=== PATIENT | male | born 1930 | race Caucasian/White ===

== ENCOUNTER 2016-06-14 23:43 | Inpatient (IN) | payer OTHER ==
[2016-06-14] MEDS ORDERED: NS 1,000 ML IV ONE (23:51)
--- NOTE | 2016-06-14 23:55 | EDPHY ---
H & P HPI/ROS: HPI CHIEF COMPLAINT: Generalized weakness, cough with sputum production HISTORY OF PRESENT ILLNESS: The patient very pleasant 85-year-old male significant past medical history for arthritis and hyperlipidemia, otherwise healthy no significant cardiac disease, presents to the emergency room with generalized weakness, cough with productive sputum clear to yellowish. She had no fever but also endorses chills and generalized weakness he tells me he has been in bed all day. Had a cough. Went to get up out of bed this evening and had 2 episodes of watery diarrhea and felt too weak to walk slightly upstairs to his bathroom and fell. His caught him he did not have head strike he did not completely go out or collapse did not have a syncopal episode. No palpitation or chest pain. No head strike. States he just feels globally weak all over his body. Past Medical History: Arthritis, hyperlipidemia Past Surgical History: No significant surgical history Social History: Denies daily use of drugs alcohol tobacco products, retired [employer] professor Family History: Noncontributory ROS REVIEW OF SYSTEMS: A comprehensive 10 point review of systems is otherwise negative aside from elements mentioned in the history of present illness. Exam Constitutional appears well nontoxic, triage nursing summary reviewed, vital signs reviewed, awake/alert. Eyes normal conjunctivae and sclera, EOMI, PERRLA. HENT normal inspection, atraumatic, moist mucus membranes, no epistaxis, neck supple/ no meningismus, no raccoon eyes. Respiratory clear to auscultation bilaterally, normal breath sounds, no respiratory distress, no wheezing. Cardiovascular rate normal, regular rhythm, no murmur, no edema, distal pulses normal. Gastrointestinal soft, non-tender, no rebound, no guarding, normal bowel sounds, no distension, no pulsatile mass. Genitourinary no CVA tenderness. Musculoskeletal no midline vertebral tenderness, full range of motion, no calf swelling, no tenderness of extremities, no meningismus, good pulses, neurovascularly intact. Skin pink, warm, & dry, no rash, skin atraumatic. Neurologic awake, alert and oriented x 3, AAOx3, moves all 4 extremities equally, motor intact, sensory intact, CN II-XII intact, normal cerebellar, normal vision, normal speech. Psychiatric normal mood/affect. Heme/Lymph/Immune no lymphadenopathy. Differential Diagnosis: Includes but is not limited to in a particular order, pneumonia, viral pneumonia, bacterial pneumonia, acute coronary syndrome, dehydration, electrolyte disturbance, sepsis, bacteremia Medical Decision Making: plan for this patient be placed on full buckle coverer and IV will be established, we will obtain blood work, including blood cultures lactic acid gently hydrate with normal saline 1 L, check chest x-ray and re-evaluate. Re-evaluation: EKG interpretation by me on record in [employer] system. Impression time of EKG 1:01 a.m., this is sinus rhythm rate of 88, Q-wave noted to 3 AVF. Otherwise unremarkable EKG. CT scan of the angiogram chest with IV contrast The results of the study are no pulmonary embolism however this does show interstitial lung disease, pulmonary fibrosis, no focal pneumonia visualized The study was read by Dr. Sibley I viewed the images myself on the PACS system. 0236: I did go re-evaluate the patient is patient initially had elevated lactic acid 3.6 down to 2.0 after 2 L of fluid. Did get blood cultures, he did receive IV Rocephin and IV azithromycin for lung process. CT scan shows no acute pneumonia. Due to patient's age of [age] years old generalized weakness, chills and rigors at home, elevated lactic acid, underlying lung disease I will bring her to the hospital for observation. Dr. Weeks accepts the admission. Source: Patient, Family, EMS - Personal History Tetanus Vaccine Date: < 10 yrs - Medical/Surgical History Hx Asthma: No Hx Chronic Respiratory Disease: No Hx Diabetes: No Hx Cardiac Disease: No Hx Renal Disease: No Hx Cirrhosis: No Hx Alcoholism: No Hx HIV/AIDS: No Hx Splenectomy or Spleen Trauma: No Other PMH: "lung problems" a few years ago. arthritis - Social History Smoking Status: Former smoker Constitutional: Initial Vital Signs Temperature (C) 37.7 C 06/15/16 00:01 Heart Rate 94 06/15/16 00:01 Respiratory Rate 16 06/15/16 00:01 Blood Pressure 137/86 H 06/15/16 00:01 O2 Sat (%) 93 06/15/16 00:01 O2 Delivery Mode Room Air Allergies/Adverse Reactions: No Known Allergies Allergy (Verified 08/10/13 14:36) Home Medications: Medication Instructions Recorded Atorvastatin Calcium [Lipitor 10 08/10/13 mg (RX)] Diclofenac Sodium 06/15/16 Medical Decision Making - Data Points Laboratory Results: Laboratory Results 06/14/16 23:48 06/14/16 23:48 06/15/16 06/15/16 06/14/16 02:00 00:15 23:48 WBC RBC Hgb Hct MCV MCH MCHC RDW Plt Count MPV Neut % (Auto) Lymph % (Auto) [place] % (Auto) Eos % (Auto) Baso % (Auto) Nucleat RBC Rel Count Absolute Neuts (auto) Absolute Lymphs (auto) Absolute Monos (auto) Absolute Eos (auto) Absolute Basos (auto) Absolute Nucleated RBC Immature Gran % Immature Gran # PT INR APTT D-Dimer VBG Lactic Acid 2.0 mmol/L D mmol/L 3.6 mmol/L H mmol/L (0.7-2.1) (0.7-2.1) Sodium Potassium Chloride Carbon Dioxide Anion Gap BUN Creatinine Estimated GFR Glucose Calcium Magnesium Total Bilirubin Conjugated Bilirubin Unconjugated Bilirubin AST ALT Alkaline Phosphatase Creatine Kinase CK-MB (CK-2) Fraction Troponin I NT-Pro-B Natriuret Pep Total Protein Albumin Lipase Urine Color YELLOW Urine Appearance CLEAR Urine pH 5.0 (5.0-7.5) Ur Specific [place] 1.028 (1.002-1.030) Urine Protein NEGATIVE (NEGATIVE) Urine Ketones TRACE H (NEGATIVE) Urine Blood NEGATIVE (NEGATIVE) Urine Nitrate NEGATIVE (NEGATIVE) Urine Bilirubin NEGATIVE (NEGATIVE) Urine Urobilinogen NEGATIVE EU EU (0.2-1.0) Ur Leukocyte Esterase NEGATIVE (NEGATIVE) Ur Culture Indicated? NOT INDICATED (NI) Urine Glucose NEGATIVE (NEGATIVE) 06/14/16 06/14/16 06/14/16 23:48 23:48 23:48 WBC 8.02 10^3/uL 10^3/uL (3.80-9.50) RBC 4.73 10^6/uL 10^6/uL (4.40-6.38) Hgb 16.1 g/dL g/dL (13.7-17.5) Hct 46.9 % % (40.0-51.0) MCV 99.2 fL fL (81.5-99.8) MCH 34.0 pg pg (27.9-34.1) MCHC 34.3 g/dL g/dL (32.4-36.7) RDW 13.3 % % (11.5-15.2) Plt Count 169 10^3/uL 10^3/uL (150-400) MPV 10.1 fL fL (8.7-11.7) Neut % (Auto) 76.0 % H % (39.3-74.2) Lymph % (Auto) 11.6 % L % (15.0-45.0) [place] % (Auto) 11.3 % % (4.5-13.0) Eos % (Auto) 0.1 % L % (0.6-7.6) Baso % (Auto) 0.6 % % (0.3-1.7) Nucleat RBC Rel Count 0.0 % % (0.0-0.2) Absolute Neuts (auto) 6.09 10^3/uL 10^3/uL (1.70-6.50) Absolute Lymphs (auto) 0.93 10^3/uL L 10^3/uL (1.00-3.00) Absolute Monos (auto) 0.91 10^3/uL H 10^3/uL (0.30-0.80) Absolute Eos (auto) 0.01 10^3/uL L 10^3/uL (0.03-0.40) Absolute Basos (auto) 0.05 10^3/uL 10^3/uL (0.02-0.10) Absolute Nucleated RBC 0.00 10^3/uL 10^3/uL (0-0.01) Immature Gran % 0.4 % % (0.0-1.1) Immature Gran # 0.03 10^3/uL 10^3/uL (0.00-0.10) PT 13.2 SEC SEC (12.0-15.0) INR 1.01 (0.83-1.16) APTT 29.7 SEC SEC (23.0-38.0) D-Dimer 0.85 ug/mLFEU H ug/mLFEU (0.00-0.50) VBG Lactic Acid Sodium 140 mEq/L mEq/L (134-144) Potassium 4.6 mEq/L mEq/L (3.5-5.2) Chloride 103 mEq/L mEq/L (97-110) Carbon Dioxide 22 mEq/l mEq/l (22-31) Anion Gap 15 mEq/L mEq/L (8-16) BUN 21 mg/dL mg/dL (7-23) Creatinine 1.4 mg/dL H mg/dL (0.7-1.3) Estimated GFR 48 Glucose 129 mg/dL H mg/dL (70-100) Calcium 9.4 mg/dL mg/dL (8.5-10.4) Magnesium 1.9 mg/dL mg/dL (1.6-2.3) Total Bilirubin 1.1 mg/dL mg/dL (0.1-1.4) Conjugated Bilirubin 0.4 mg/dL mg/dL (0.0-0.5) Unconjugated Bilirubin 0.7 mg/dL mg/dL (0.0-1.1) AST 47 IU/L IU/L (17-59) ALT 37 IU/L IU/L (21-72) Alkaline Phosphatase 79 IU/L IU/L (38-126) Creatine Kinase 166 IU/L IU/L (0-224) CK-MB (CK-2) Fraction 0.64 ng/mL ng/mL (0-3.19) Troponin I 0.026 ng/mL ng/mL (0-0.034) NT-Pro-B Natriuret Pep 352 pg/mL pg/mL (0-450) Total Protein 7.7 g/dL g/dL (6.3-8.2) Albumin 4.4 g/dL g/dL (3.5-5.0) Lipase 141.0 IU/L IU/L (23-300) Urine Color Urine Appearance Urine pH Ur Specific [place] Urine Protein Urine Ketones Urine Blood Urine Nitrate Urine Bilirubin Urine Urobilinogen Ur Leukocyte Esterase Ur Culture Indicated? Urine Glucose Medications Given: Discontinued Medications Sodium Chloride (Ns) 1,000 mls @ 0 mls/hr IV ONCE ONE PRN Reason: Wide Open Stop: 06/14/16 23:52 Last Admin: 06/15/16 00:26 Dose: 1,000 mls Sodium Chloride (Ns) 1,000 mls @ 0 mls/hr IV ONCE ONE PRN Reason: Wide Open Stop: 06/15/16 00:35 Last Admin: 06/15/16 01:04 Dose: 1,000 mls Azithromycin 500 mg/ Dextrose 255 mls @ 255 mls/hr IV EDNOW ONE PRN Reason: Protocol Stop: 06/15/16 01:34 Last Admin: 06/15/16 01:39 Dose: 255 mls Ceftriaxone Sodium/Dextrose (Rocephin 1 Gm (Premix)) 50 mls @ 100 mls/hr IV EDNOW ONE PRN Reason: Protocol Stop: 06/15/16 01:04 Last Admin: 06/15/16 01:05 Dose: 50 mls Departure - Departure Disposition: [facility] Inpatient Acute Clinical Impression: Generalized weakness Condition: Fair Referrals: Gema Etienne MD [Primary Care Provider] - As per Instructions
[2016-06-15 00:05] LABS: % IMMATURE GRANULYOCYTES 0.4 % (0.0-1.1); ABSOLUTE IMMATURE GRANULOCYTES 0.03 10^3/uL (0.00-0.10); ADD DIFF? NO; ADD MORPH? NO; ADD SCAN? NO; ATYPICAL LYMPHOCYTE FLAG 0 (0-99); FRAGMENT RBC FLAG 0 (0-99); HEMATOCRIT 46.9 % (40.0-51.0); HEMOGLOBIN 16.1 g/dL (13.7-17.5); LEFT SHIFT FLG 0 (0-99); LIPEMIA HEMOLYSIS FLAG 90 (0-99); MEAN CELL HEMOGLOBIN CONCENTR. 34.3 g/dL (32.4-36.7); MEAN CELL VOLUME 99.2 fL (81.5-99.8); MEAN PLATELET VOLUME 10.1 fL (8.7-11.7); PLATELET CLUMPS FLAG 0 (0-99); PLATELET COUNT 169 10^3/uL (150-400); RED BLOOD CELL COUNT 4.73 10^6/uL (4.40-6.38); RED CELL DISTRIBUTION WIDTH 13.3 % (11.5-15.2)
[2016-06-15 00:10] LABS: INR 1.01 (0.83-1.16); PROTIME(PATIENT) 13.2 SEC (12.0-15.0)
[2016-06-15 00:11] LABS: APTT 29.7 SEC (23.0-38.0)
[2016-06-15 00:15] LABS: ALANINE AMINOTRANSFERASE 37 IU/L (21-72); ALBUMIN 4.4 g/dL (3.5-5.0); ALKALINE PHOSPHATASE 79 IU/L (38-126); ANION GAP 15 mEq/L (8-16); ASPARTATE AMINOTRANSFERASE 47 IU/L (17-59); BILIRUBIN,TOTAL 1.1 mg/dL (0.1-1.4); BILIRUBIN-CONJUGATED 0.4 mg/dL (0.0-0.5); BILIRUBIN-UNCONJUGATED 0.7 mg/dL (0.0-1.1); CALCIUM 9.4 mg/dL (8.5-10.4); CARBON DIOXIDE 22 mEq/l (22-31); CHLORIDE 103 mEq/L (97-110); CREATININE 1.4 mg/dL (0.7-1.3); GLOMERULAR FILTRATION RATE 48; GLUCOSE 129 mg/dL (70-100); MAGNESIUM 1.9 mg/dL (1.6-2.3); POTASSIUM 4.6 mEq/L (3.5-5.2); SODIUM 140 mEq/L (134-144); TOTAL PROTEIN 7.7 g/dL (6.3-8.2)
[2016-06-15 00:24] LABS: CREATINE KINASE-MB FRACTION 0.64 ng/mL (0-3.19); TROPONIN I 0.026 ng/mL (0-0.034)
[2016-06-15] MEDS ORDERED: NS 1,000 ML IV ONE (00:34)
[2016-06-15] MEDS ORDERED: AZITHROMYCIN IV 500 MG in D5W 250 ML IV ONE (00:35)
[2016-06-15] MEDS ORDERED: IOPAMIDOL (ISOVUE 370) 100 ML BTL IV ONE (00:53)
--- NOTE | 2016-06-15 01:03 | CPEKG ---
Heart Rate: 88 RR Interval: 682 P-R Interval: 160 QRSD Interval: 78 QT Interval: 336 QTC Interval: 407 P [place]: 22 QRS [place]: -28 T Wave [place]: -24 EKG Severity - ABNORMAL ECG - EKG Impression: SINUS RHYTHM EKG Impression: PROBABLE LEFT ATRIAL ABNORMALITY EKG Impression: PROBABLE INFERIOR INFARCT, AGE INDETERMINATE Electronically Signed By: Jose Long 15-Jun-2016 06:46:10
[2016-06-15 02:29] LABS: COLOR YELLOW; LEUKOCYTE ESTERASE,URINE NEGATIVE (NEGATIVE); NITRITE,URINE NEGATIVE (NEGATIVE)
[2016-06-15] MEDS ORDERED: ONDANSETRON 4 MG/2 ML VIAL IVP PRN (04:06)
[2016-06-15] MEDS ORDERED: ONDANSETRON DISINTEGRATING 4 MG TAB PO PRN (04:06)
[2016-06-15] MEDS ORDERED: OXYCODONE/APAP 5/325 TAB PO PRN (04:28)
[2016-06-15] MEDS: NS 1,000 ML IV SCH ×3 (04:53→22:57)
[2016-06-15] MEDS: ACETAMINOPHEN 325 MG TAB PO PRN ×4 (04:54→21:14)
[2016-06-15] MEDS ORDERED: LORazepam 2 MG/ML INJ IVP ONE (05:19)
[2016-06-15 05:23] LABS: % IMMATURE GRANULYOCYTES 0.4 % (0.0-1.1); ABSOLUTE IMMATURE GRANULOCYTES 0.04 10^3/uL (0.00-0.10); ADD DIFF? NO; ADD MORPH? NO; ADD SCAN? NO; ATYPICAL LYMPHOCYTE FLAG 0 (0-99); FRAGMENT RBC FLAG 0 (0-99); HEMATOCRIT 48.3 % (40.0-51.0); HEMOGLOBIN 16.5 g/dL (13.7-17.5); LEFT SHIFT FLG 0 (0-99); LIPEMIA HEMOLYSIS FLAG 90 (0-99); MEAN CELL HEMOGLOBIN 35.2 pg (27.9-34.1); MEAN CELL HEMOGLOBIN CONCENTR. 34.2 g/dL (32.4-36.7); MEAN PLATELET VOLUME 10.5 fL (8.7-11.7); PLATELET CLUMPS FLAG 0 (0-99); PLATELET COUNT 151 10^3/uL (150-400); RED BLOOD CELL COUNT 4.69 10^6/uL (4.40-6.38); RED CELL DISTRIBUTION WIDTH 13.7 % (11.5-15.2)
[2016-06-15 05:40] LABS: ANION GAP 14 mEq/L (8-16); CALCIUM 8.6 mg/dL (8.5-10.4); CARBON DIOXIDE 19 mEq/l (22-31); CHLORIDE 105 mEq/L (97-110); CREATININE 1.2 mg/dL (0.7-1.3); GLOMERULAR FILTRATION RATE 58; GLUCOSE 96 mg/dL (70-100); POTASSIUM 4.5 mEq/L (3.5-5.2); SODIUM 138 mEq/L (134-144)
[2016-06-15 05:46] LABS: TROPONIN I 0.047 ng/mL (0-0.034)
--- NOTE | 2016-06-15 07:20 | GHP ---
[f rep st] HISTORY AND PHYSICAL DATE OF ADMISSION: 06/15/2016 CHIEF COMPLAINT: Weakness, shaking chills and cough. HISTORY: This is an 85-year-old man with a past medical history of osteoarthritis and interstitial lung disease, noted on imaging and biopsy in 2010, with nonspecific findings, presenting with about 1 day's worth of generalized malaise and fatigue, loss of appetite, sore throat, shaking chills, and cough with sputum production. At the time my evaluation, patient is extremely tremulous throughout his entire body, and having difficulty relaying his history due to mild distress. He is able to te ll me that these symptoms started the day prior to presentation and have been worsening over the cou rse of the day. He notes he really has been unable to eat or drink anything over the last 24 hours other than soups. Ultimately, the weakness got so bad that when he tried to get out of bed this andrew medina he ended up falling, and then was unable to get up on his own. He was incontinent of stool at the same time. He denies any pain really. He notes that he did not hit his head or injure himself on his fall, as his was there and helped him get to the floor. He notes in terms of his ILD, t his was diagnosed years ago by Dr. 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 He denies any sick contacts recently. He has never had similar symptoms in the [facility]. PAST MEDICAL HISTORY: 1. Osteoarthritis. 2. Interstitial lung disease as per HPI. 3. Chronic macrocytosis. PAST SURGICAL HISTORY: Bilateral total hip arthroplasties. FAMILY HISTORY: Parents are both . SOCIAL HISTORY: The patient is a retired [employer] professor. He typically drinks at least 1 glass of wine per day, has not had a drink in 2 days however, secondary to not feeling well. He is a never smoker. Denies drug use. He is . REVIEW OF SYSTEMS: A 10-point review of systems obtained, negative except as per HPI. CODE STATUS: The patient states he is a DNR. He does have a living will and power of route supervisor on f ile at our hospital. MEDICATIONS: 1. Diclofenac. 2. Atorvastatin. ALLERGIES: No known drug allergies. PHYSICAL EXAM: VITAL SIGNS: BP 119/76, heart rate 83, respiratory rate 20, O2 saturation 92% on ro om air. Temperature is 39.4. GENERAL APPEARANCE: This is a thin male. He is in mild di stress. He is diffusely tremulous. EYES: Anicteric. HEENT: Dry mucous membranes, there is mild posterior pharyngeal erythema without exudate. CARDIOVASCULAR: RRR, no MRG. PULMONARY: CTA bilat erally to anterior exam. ABDOMEN: Soft, nontender. Positive bowel sounds. EXTREMITIES: No clubb ing, cyanosis, or edema. SKIN: Warm, dry, well perfused. NEURO/PSYCH: Oriented and appropriate, pleasant. LABORATORY DATA: Significant for white blood cell count of 10, hematocrit 48.3, platelets of 151, M CV is 103. He had a D-dimer of 0.85. Initial lactic acid 3.6, improved to 2.0. Chemistry remarkabl e for an initial creatinine of 1.4. Troponin initially 0.026 and on repeat 0.047. Urinalysis showi ng trace ketones. Influenza swab positive for flu A. EKG personally reviewed and interpreted shows sinus rhythm. There are inferior Q-waves. Chest and thorax CT angiogram, personally reviewed and interpreted, shows no PE. There was evidence of diffuse interstitial lung disease and bronchiectasis. A formal radiology read is pending. ASSESSMENT AND PLAN: This is an 85-year-old man with past medical history of interstitial lung dise ase and osteoarthritis, presenting with sepsis and influenza. 1. Sepsis: Patient noted to be febrile to 39.4 with altered mentation, acute kidney injury, an ani vated troponin in the setting of acute infectious process, notably influenza A infection. He is cur rently hemodynamically stable. His lactic acid has come down from 3.6 to 2.0. He was given ceftria xone and azithromycin empirically in the emergency department, and now has been started on Tamiflu i n addition. 2. Acute influenza A in the setting of above: Started on Tamiflu. For the time being, will also t reat with levofloxacin, given difficulty to exclude concurrent bacterial infection in this patient w ith underlying interstitial lung disease as per next. 3. Interstitial lung disease: This has been present since at least 2008, but apparently has been r ather quiescent. 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 In the se tting of influenza and sepsis, again it is difficult to exclude concurrent bacterial infection. He has received ceftriaxone and azithromycin, with blood cultures pending. Will treat with levofloxaci n as monotherapy, as long as he continues to improve clinically, but would have a low threshold to b roaden. 4. Elevated troponin without chest pain or acute ischemic changes on EKG and in the setting of seps is, and likely related to end-organ dysfunction in the setting of acute infectious process. Will ob tain an echocardiogram and continue to trend troponins to peak. Monitoring on telemetry. 5. Acute kidney injury in the setting of sepsis as per above. Creatinine has improved with IV flui ds and initiation of antibiotic therapy. We will continue to monitor. 6. Macrocytosis: This is chronic. Again, in the setting of daily alcohol use and likely related t o the same. We will trend. 7. Tremulousness: Suspect this is rigors, however given history of daily alcohol use and not hayde borges had a drink for 2 days, there is some concern for withdrawal. Gave a small dose of Ativan, with s ome improvement. Blood cultures are pending. Have not initiated CIWA protocol, but this will need to be considered if tremulousness and encephalopathy do not improve with treatment of infection. 8. Acute encephalopathy: The patient noted to be mildly confused and very slow to respond to quest ions, which is a change from his baseline per patient and family's report. Again, this is in the se tting of acute infection and sepsis, and likely related to the same. We will monitor closely. 9. Disposition: Inpatient status. Suspect he will need greater than 48 hour stay for evaluation a nd management of above. 10. PCP Dr. Etienne, Paleobotanist Dr. Regalado. 11. Code status is DNR. 12. Patient is new to my care. Old records reviewed, summarized as per HPI and past medical histor y. Care plan reviewed with ER physician, including plans for treatment of suspected pneumonia. /[id number]/MODL
[2016-06-15] MEDS ORDERED: OSELTAMIVIR PHOSPHATE 75 MG CAP PO SCH (08:00)
--- NOTE | 2016-06-15 08:46 | HOSPPROG ---
Hospitalist Progress Note Assessment/Plan: Patient is an 85-year-old man presented to the emergency room with weakness, shaking, and cough. Today is my 1st encounter with the patient. Chart reviewed with Dr. Weeks. *Influenza A tamiflu * sepsis febrile with a temperature 39.4 degrees this a.m. on Levaquin, blood cultures pending *elevated trops/likely demand ischemia trops have trended up echo shows ef of 70-75%, diastolic dysfunction, no wall abnormalities * interstitial lung disease chest x-ray notes this in addition CT scan shows no PE, evidence of diffuse interstitial lung disease and bronchiectasis spoke with Dr Santos and he will see later today * acute kidney injury will follow /likely due in the setting of dehydration and being ill * macrocytosis * tremulousness unclear if related to be in septic or possibly related to his alcohol use will continue close monitoring *acute encephalopathy resolved *Plan: Dr Santos to see, follow labs, continue current treatment. Subjective: Ruy said he is run down. Objective: Vital Signs Temp Pulse Resp BP Pulse Ox 36.7 C 94 20 108/61 95 06/15/16 07:09 06/15/16 07:09 06/15/16 07:09 06/15/16 07:09 06/15/16 07:09 Laboratory Results 06/15/16 04:39 06/15/16 04:39 06/14/16 06/15/16 06/16/16 05:59 05:59 05:59 Intake Total 2000 Output Total 250 Balance 1750 PT 13.2 SEC (12.0-15.0) 06/14/16 23:48 INR 1.01 (0.83-1.16) 06/14/16 23:48 - Physical Exam Constitutional: chronically ill appearing, other (thin) Eyes: PERRL Ears, Nose, Mouth, Throat: hearing normal Cardiovascular: regular rate and rhythym Respiratory: reduced air movement, other (rubbing type lung sounds), No no respiratory distress (increase wob with talking) Gastrointestinal: normoactive bowel sounds Skin: warm Neurologic: AAOx3 Psychiatric: interacting appropriately, not anxious ICD10 Worksheet Patient Problems: Problems Problem Status Onset Generalized weakness Acute Primary osteoarthritis of one hip Acute
[2016-06-15] MEDS ORDERED: ENOXAPARIN 30 MG/0.3 ML SYR SC SCH (09:00)
[2016-06-15] MEDS: OSELTAMIVIR 6 MG/ML UDSYR PO SCH ×2 (09:30→17:55)
[2016-06-15] MEDS: CEPACOL LOZENGE PO PRN (09:51)
--- NOTE | 2016-06-15 10:40 | ECHO ---
[id number] + + [phone] : : [place] [id number] : : [phone] + Adult Echocardiographic Report + ----+ :Name: YU CARNES Amie Date: 06/15/2016 09:03 AM : : Hospital Admission Number: [id number] Location: 384: :: 1930 Gender: Male Height: 70 in : :Age: 85 yrs Race: WH Weight: 145 lb : :Reason For Study: Influenza,elevated troponin : : BSA: 1.8 meters2 : + ----+ MMode/2D Measurements \T\ Calculations IVSd: 0.79 cm LVIDd: 3.9 cm FS: 51.5 % Ao root diam: 4.5 cm LVPWd: 0.99 cm LVIDs: 1.9 cm EDV(Teich): 64.2 ml LA dimension: 3.2 cm ESV(Teich): 10.7 ml EF(Teich): 83.3 % Normal Measurement Values: + + :LVIDd (3.5-5.7cm) IVSd (0.6-1.1cm) LVPWd (0.6-1.1cm) Aortic Root (2.0-3.7cm)Left Atrium (1.5-4.0cm): :LV Vol(d) (76-115ml) LV Vol(s) (29-48ml) Ejec Fraction (50-65%)PV [place] (0.6- 1.2m/s) TV [place] (0.4-1.0m/s) : :MV E [place] (0.8-1.0m/s)MV A [place] (0.3-1.0m/s)LVOT [place] (0.7-1.2m/s) Asc Ao [place] ( 0.9-1.8m/s) : + + Doppler Measurements \T\ Calculations MV E max reno: 61.7 cm/sec Ao V2 max: 114.0 cm/sec TR max reno: 264.7 cm/sec MV A max reno: 94.8 cm/sec Ao max P.2 mmHg TR max P.0 mmHg MV E/A: 0.65 RAP systole: 10.0 mmHg RVSP(TR): 38.0 mmHg Left Ventricle The left ventricle is normal in size. There is normal left ventricular wall thickness. Left ventricular systolic function is normal. Ejection Fraction = 70-75%. There is Doppler evidence for diastolic dysfunction. No regional wall motion abnormalities noted. Right Ventricle The right ventricle is normal in size and function. Atria The left atrial size is normal. Right atrial size is normal. The interatrial septum is intact with no evidence for an atrial septal defect. Mitral Valve The mitral valve is normal in structure and function. There is mild mitral regurgitation. Tricuspid Valve Normal tricuspid valve. There is mild tricuspid regurgitation. Right ventricular systolic pressure is 30-35mmHg. Aortic Valve The aortic valve is trileaflet. The aortic valve opens well. There is no aortic stenosis. There is no aortic insufficiency. Pulmonic Valve The pulmonic valve is not well visualized. Trace pulmonic valvular regurgitation. Great Vessels The aortic root is normal size. Borderline dilated ascending aorta. Pericardium/Pleural There is no pericardial effusion. Conclusion A complete two-dimensional transthoracic echocardiogram was performed (2D, M-mode, Doppler and color flow Doppler). Technically difficult study. (1) Left ventricular systolic ejection fraction was normal (70%) - normal wall motion (2) No left ventricular hypertrophy (3) Diastolic dysfunction was present (4) Normal right ventricular size and function (5) Normal atrial dimensions (6) Mild mitral regurgitation (7) Trileaflet aortic valve without sclerosis or insufficiency (8) Mild tricuspid regurgitation - RVSP was 30-35 mm Hg (9) Poor visualization of the pulmonic valve (10) In comparison to prior echo from 01/23/11, dilation of chambers is no longer appreciated Final Reading Physician: Dyan Aguilar signed on 06/15/2016 10:39 AM Ordering Physician: Paula Weeks Performed By: Kathie Ashford, CAMILOCS
--- NOTE | 2016-06-15 15:51 | GCON ---
[f rep st] CONSULTATION PULMONARY CONSULTATION DATE OF CONSULTATION: 06/15/2016 REFERRING PHYSICIAN: Swetha Cuevas NP REASON FOR REFERRAL: Evaluation and management of influenza pneumonia and interstitial lung disease. HISTORY: The patient is an 85-year-old gentleman with a history of interstitial lung disease who was admitted with a 1-day history of weakness, chills and cough. He was in his usual state of good health when yesterday he developed anorexia with weakness to the point that he was so weak he was falling and was incontinent of stool. He did not have any injuries when he fell. He also had some chills and a nonproductive cough. Since being admitted to the hospital he feels a bit better, but still has a very sore throat, which is his main complaint. He also continues to feel quite weak. PAST MEDICAL HISTORY: 1. Interstitial lung disease. This was evaluated by Dr. 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 BOOP could not be excluded. Idiopathic pulmonary fibrosis was not mentioned in the pathology report. The patient denies any significant symptoms from this, and does not use any medications or oxygen. 2. Osteoarthritis. 3. Chronic macrocytosis. MEDICATIONS: At the time of admission include diclofenac and atorvastatin. ALLERGIES: None. SOCIAL HISTORY: The patient is a retired professor. He drinks at least 1 glass of wine daily and never smoked. FAMILY HISTORY: Unremarkable. REVIEW OF SYSTEMS: A 10-point review of systems is obtained and is negative except for the HPI. PHYSICAL EXAMINATION: GENERAL: The patient is awake, alert, and in no acute distress. VITAL SIGNS: His blood pressure is 93/60 with a pulse of 116. He is currently afebrile but had a temperature of 39.4 early this morning. His oxygen saturations are 94% on 5 L. HEENT: Normocephalic and atraumatic. No icterus. NECK: No JVD. Trachea is midline. CHEST: He has basilar rales bilaterally. CARDIAC: Regular tachycardia without murmur. ABDOMEN: Soft, nontender. Bowel sounds are present. EXTREMITIES: No clubbing, cyanosis or edema. LABORATORY: White blood count is 10.2, hemoglobin 16.5 with an MCV of 103. Chemistry group is unremarkable. TSH is 7.9. Venous lactate is 2.0, down from 3.6. A CT scan of the chest shows chronic fibrotic changes primarily in the posterior basilar distribution peripherally and bilaterally. These changes were present on a CT scan in 2011, but there is some advance in the degree of cyst/honeycombing in these regions. Images reviewed. Serology is positive for influenza A. ASSESSMENT: 1. Influenza A infection. The patient does not have any significant pneumonitis seen on the CT scan. He has mild hypoxemia and is also symptomatic with a cough and sore throat. He has been started empirically on Tamiflu, and this was started less than 48 hours after the onset of symptoms, so hopefully will have some benefit in shortening the course of his illness. He has also been started on Levaquin after initially receiving azithromycin and ceftriaxone in the emergency department. I think it is reasonable to treat him for a few days with a short course of antibiotics to help prevent bacterial superinfection. I do not see any signs of significant pneumonia at this time on the CT scan. 2. Interstitial lung disease. This has the appearance of idiopathic pulmonary fibrosis, but the biopsy suggested organizing pneumonia. However, this was just a transbronchial biopsy, and these can be subject to reduced specificity due to the small sample size. Nonetheless, he does not appear to have significant progression of disease and is essentially asymptomatic, so it is likely that therapy would have little benefit for him at this point. Nonetheless, it may be worth having him return for followup with pulmonary function tests to discuss diagnostic and treatment options once his current illness has resolved. RECOMMENDATIONS: 1. Continue Tamiflu. 2. Complete a short course of Levaquin, perhaps just 3 doses over 5 days. 3. Symptomatic/supportive care for influenza pneumonia, including fluids, analgesics, and antipyretics. 4. Consider follow up with Dr. Matthews following hospitalization. /[id number]/MODL MTDD
[2016-06-15] MEDS ORDERED: AZITHROMYCIN IV 500 MG in D5W 250 ML IV SCH (21:00)
[2016-06-16] MEDS: NS 1,000 ML IV SCH ×2 (07:04→14:56)
[2016-06-16] MEDS: OSELTAMIVIR 6 MG/ML UDSYR PO SCH ×2 (08:43→18:15)
[2016-06-16] MEDS: ATORVASTATIN CALCIUM 10 MG TAB PO SCH (08:44)
[2016-06-16] MEDS: ENOXAPARIN 40 MG/0.4 ML SYR SC SCH (08:44)
--- NOTE | 2016-06-16 09:43 | HOSPPROG ---
Hospitalist Progress Note Assessment/Plan: Patient is an 85-year-old man presented to the emergency room with weakness, shaking, and cough. *Influenza A tamiflu * sepsis resolving on Levaquin, blood cultures no growth *elevated trops/likely demand ischemia trops have trended up/ no chest pain echo shows ef of 70-75%, diastolic dysfunction, no wall abnormalities message left with his solar crew member * interstitial lung disease chest x-ray notes this in addition CT scan shows no PE, evidence of diffuse interstitial lung disease and bronchiectasis appreciate Dr Santos * acute kidney injury will follow /likely due in the setting of dehydration and being ill * macrocytosis * tremulousness non further *acute encephalopathy resolved *elevated TSH will have this repeated in 6 weeks with his PCP to see if he needs treatment *Plan: continue current care, Cards aware of his admission. Still hypoxic and requiring 5 liters of O2/ not ready for dc as of yet. Subjective: Ruy is feeling better today, but still short of breath. Objective: Vital Signs Temp Pulse Resp BP Pulse Ox 36.4 C 87 24 H 117/78 96 06/16/16 07:23 06/16/16 07:23 06/16/16 07:23 06/16/16 07:23 06/16/16 07:23 Laboratory Results 06/15/16 04:39 06/15/16 04:39 06/15/16 06/16/16 06/17/16 05:59 05:59 05:59 Intake Total 1999 2808 Output Total 250 800 Balance 1750 2007 PT 13.2 SEC (12.0-15.0) 06/14/16 23:48 INR 1.01 (0.83-1.16) 06/14/16 23:48 - Physical Exam Constitutional: chronically ill appearing, other (thin) Eyes: PERRL Ears, Nose, Mouth, Throat: hearing normal Cardiovascular: regular rate and rhythym Respiratory: reduced air movement, other (rubbing type lung sounds samina at the midlobes,diminished at the bases) Skin: warm Musculoskeletal: generalized weakness Neurologic: AAOx3 Psychiatric: interacting appropriately ICD10 Worksheet Patient Problems: Problems Problem Status Onset Generalized weakness Acute Primary osteoarthritis of one hip Acute
[2016-06-16] MEDS: ACETAMINOPHEN 325 MG TAB PO PRN (12:17)
[2016-06-16] MEDS: CEPACOL LOZENGE PO PRN (12:17)
--- NOTE | 2016-06-16 15:21 | PDINTPN ---
Recordist Chief Progress Note Assessment/Plan: Assessment: Influenza A: Without significant pneumonia seen on CT. Symptoms improving. 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 Plan: Continue Tamiflu, Levaquin, oxygen for now. Hopefully can go home in a day or two if his oxygen needs go down a bit. 06/16/16 15:21 06/16/16 15:22 Subjective: Dry cough and sore throat are a bit better. Denies dyspnea, but hasn't been active. Objective: Vital Signs Temp Pulse Resp BP Pulse Ox 36.7 C 73 15 110/64 92 06/16/16 15:10 06/16/16 15:10 06/16/16 15:10 06/16/16 15:10 06/16/16 15:10 Laboratory Results 06/15/16 04:39 06/15/16 04:39 06/15/16 06/16/16 06/17/16 05:59 05:59 05:59 Intake Total 1999 2808 Output Total 250 800 500 Balance 1750 2007 - PT 13.2 SEC (12.0-15.0) 06/14/16 23:48 INR 1.01 (0.83-1.16) 06/14/16 23:48 Physical Exam - Physical Exam General Appearance: alert, no apparent distress EENT: normal ENT inspection Neck: normal inspection Respiratory: crackles Cardiac/Chest: regular rate, rhythm, No edema Abdomen: normal bowel sounds, non-tender, soft Skin: normal color, warm/dry Extremities: normal inspection Neuro/Psych: alert, normal mood/affect ICD10 Worksheet Patient Problems: Problems Problem Status Onset Generalized weakness Acute Primary osteoarthritis of one hip Acute
[2016-06-17] MEDS: CEPACOL LOZENGE PO PRN (05:10)
[2016-06-17] MEDS: ATORVASTATIN CALCIUM 10 MG TAB PO SCH (08:40)
[2016-06-17] MEDS: ENOXAPARIN 40 MG/0.4 ML SYR SC SCH (08:40)
[2016-06-17] MEDS: OSELTAMIVIR 6 MG/ML UDSYR PO SCH ×2 (09:31→18:14)
--- NOTE | 2016-06-17 10:31 | GCON ---
[f rep st] CONSULTATION CARDIOLOGY CONSULTATION. DATE OF CONSULTATION: 06/17/2016 INDICATION FOR CONSULTATION: Mildly elevated troponin, history of coronary artery disease, new onset of acute sepsis, influenza A. HISTORY OF PRESENT ILLNESS: The patient is a pleasant 85-year-old gentleman well known to our cardiology practice at the [facility] with a past medical history of coronary artery disease based on a calcium score, hyperlipidemia, mild bilateral carotid artery disease and mildly dilated aortic root, who was in his usual state of health until last week when he began to develop complaints of general malaise, fatigue, cough, fever, sore throat that progressed for 24 hours prior to his admission. He presented to [facility] late in the evening on June 14, 2016, after complete collapsing at home, losing control of bowel and bladder and unable to get up secondary to severe weakness. He was found to have an elevated D-dimer at 0.85. CTA of the chest was negative for pulmonary emboli but did demonstrate diffuse interstitial lung disease changes. He does have a known history of interstitial lung disease versus bronchiolitis obliterans organizing pneumonia. At the time of his admission, he was found to be in acute sepsis with acute encephalopathy in the setting of influenza A. Over the 48 hours since his admission, he has made marked improvements. He is currently on Tamiflu. He has received IV hydration and covered with antibiotics with Levaquin. His encephalopathy has resolved. He has been found to have a mildly elevated troponin throughout the course of his hospitalization, trending from 0.047 on admission to 0.089, trending to 0.140, and most recently yesterday morning at 0359 to 0.162. The patient has no complaints of substernal chest pain, chest pressure, chest tightness. He has no complaints of epigastric pain, shoulder pain, jaw pain, or midscapular pain. He did undergo a complete 2D echocardiogram on June 15, 2016, demonstrating normal left ventricular systolic function with LVEF of 70%, 75% without wall motion abnormalities. Right ventricular size and function were normal. He had mild tricuspid regurgitation and mild pulmonary hypertension with RV systolic pressure between 30 and 35 mmHg. 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 These changes are new compared to previous ECG in my office, however, this ECG dates back to 2010. He did undergo an exercise nuclear stress test on July 27, 2015, demonstrating normal perfusion and function which was unchanged compared to previous study in 2013. Echocardiogram in our office in july 2015 demonstrated normal left ventricular function, grade 1 diastolic dysfunction, normal right ventricular size and function and normal atrial dimensions. He also underwent a bilateral carotid Doppler in July 2015 demonstrating stable mild bilateral carotid plaque. Currently at the time of my exam, he is sitting up, having breakfast. He is feeling markedly better than he did on his admission. He continues to complain of sputum production and cough. He states he had a slight fever overnight, however, no complaints of rigors or chills. He denies complaints of nausea, vomiting. No complaints of abdominal pain, back pain or flank pain. He does continue to have significant oxygen requirements and oxygen saturation is currently 87% on 5 L via nasal cannula. He was not on home oxygen prior to this hospitalization. PAST MEDICAL HISTORY: 1. Coronary artery disease based on calcium score with a value over 2000 with normal nuclear stress test July 2015. 2. Hyperlipidemia. LDL is well controlled on Lipitor 10 mg Friday, Friday, Friday only. 3. Mild bilateral carotid artery disease stable on ultrasound in July 2015. 4. History of interstitial lung disease versus BOOP. 5. Osteoarthritis. 6. Chronic macrocytosis. MEDICATIONS ON ADMISSION: Include: 1. Aspirin 81 mg daily. 2. Atorvastatin 10 mg, Friday, Friday, Friday only. 3. Diclofenac. 4. Multivitamin. ALLERGIES: No known drug allergies. SOCIAL HISTORY: He is . He lives with his . He is a retired professor. He is a lifelong nonsmoker. He drinks approximately 1 glass of wine daily. FAMILY HISTORY: Noncontributory. PHYSICAL EXAM: VITAL SIGNS: Blood pressure 117/83, heart rate 80 in sinus rhythm, respiratory rate 15, oxygen saturation 87% on 5 L via nasal cannula. GENERAL: He is awake, alert, oriented, appropriate, no apparent distress. There is no evidence of JVP or carotid bruits. LUNGS: Demonstrate coarse breath sounds bilaterally at the bases. CARDIAC: S1, S2. Regular rate and rhythm. No murmurs, rubs, or gallops. ABDOMEN: Soft, nontender. EXTREMITIES : He has no evidence of cyanosis, clubbing or edema. LAB WORK: Demonstrates white blood cell count of 10.19 on June 15 with hemoglobin of 16.5, hematocrit 48.3, platelet count 151. Sodium 138, potassium 4.5, chloride 105, bicarb 19, BUN 17, creatinine 1.2. TSH 7.90. Initial troponin on June 15 was 0.047, increasing to 0.089, increasing to 0.104, and most recently 0.162 on 06/16 at 0359. DATA: Echocardiogram done June 15, 2016, normal left ventricular systolic function with LVEF of 70%, 75% without wall motion abnormality. Normal right ventricular size and function and mild pulmonary hypertension with RV systolic pressure of 30 to 35 mmHg. ECG demonstrates sinus rhythm with Q-waves in the inferior leads consistent with prior inferior wall infarct. Nuclear stress test in my office July 27, 2015, demonstrates normal perfusion and function with LVEF of 66%. IMPRESSION: 1. Mildly elevated troponin in the setting of acute sepsis and mild renal insufficiency secondary to acute influenza A. 2. Demand ischemia in the setting of acute sepsis. 3. Coronary artery disease based on calcium score. 4. Influenza A. 5. Hyperlipidemia. 6. Bilateral carotid disease. SUMMARY: The patient is a pleasant 85-year-old gentleman admitted with acute sepsis with acute encephalopathy in the setting of influenza A infection with mild elevation in troponin without symptoms and without evidence of wall motion abnormality on his echocardiogram. I think these findings are related to demand ischemia in the setting of acute illness and sepsis coupled with mild acute renal insufficiency in the setting of influenza A. I do not think that he requires further risk stratification or diagnostic left heart catheterization at this time. He is hemodynamically stable and without cardiac complaint. Would recommend he remain on his current dose of atorvastatin and also restart aspirin 81 mg daily. We will also arrange for outpatient followup in the next 2 weeks with myself. PLAN: 1. Would recommend repeat troponin this morning. 2. Repeat ECG. 3. Initiate aspirin 81 mg daily. 4. Continue atorvastatin 10 mg, Friday, Friday, Friday only. 5. We will arrange for outpatient office visit in the next 2 weeks. 6. We will also contact his primary care physician, Dr. Etienne, and update her on his current health status and we will arrange for him to be seen in Dr. Etienne 's office in the coming weeks as well. Thank you very much for this consult. Please do not hesitate to call me with questions or concerns. 45 minutes were spent coordinating patient care. /[id number]/MODL MTDD
--- NOTE | 2016-06-17 10:47 | HOSPPROG ---
Hospitalist Progress Note Assessment/Plan: Patient is an 85-year-old man presented to the emergency room with weakness, shaking, and cough. *Influenza A tamiflu still on 5 liters of O2, but feeling better * sepsis resolving on Levaquin, blood cultures no growth *elevated trops/likely demand ischemia trops have trended up/ no chest pain echo shows ef of 70-75%, diastolic dysfunction, no wall abnormalities reviewed his care with Dr Redmond, retirement sales consultant appreciate his involvement * interstitial lung disease chest x-ray notes this in addition CT scan shows no PE, evidence of diffuse interstitial lung disease and bronchiectasis * acute kidney injury likely due in the setting of dehydration and being ill * macrocytosis * tremulousness non further *acute encephalopathy resolved *elevated TSH will have this repeated in 6 weeks with his PCP to see if he needs treatment *Plan: continue current care. Subjective: Ruy is c/o some sinus congestion but is feeling better today/ still weak but stronger than when he was admitted. Objective: Vital Signs Temp Pulse Resp BP Pulse Ox 37.0 C 80 15 117/83 H 87 L 06/17/16 04:00 06/17/16 08:00 06/17/16 08:00 06/17/16 08:00 06/17/16 08:00 Laboratory Results 06/15/16 04:39 06/15/16 04:39 06/16/16 06/17/16 06/18/16 05:59 05:59 05:59 Intake Total 2808 2250 Output Total 800 1000 Balance 2007 1250 PT 13.2 SEC (12.0-15.0) 06/14/16 23:48 INR 1.01 (0.83-1.16) 06/14/16 23:48 - Physical Exam Constitutional: no apparent distress, other (thin) Eyes: PERRL Ears, Nose, Mouth, Throat: hearing normal Cardiovascular: regular rate and rhythym Respiratory: no respiratory distress, reduced air movement, other (few rhonchii at bases) Gastrointestinal: normoactive bowel sounds Skin: warm Musculoskeletal: generalized weakness Neurologic: AAOx3 Psychiatric: interacting appropriately ICD10 Worksheet Patient Problems: Problems Problem Status Onset Generalized weakness Acute Primary osteoarthritis of one hip Acute
--- NOTE | 2016-06-17 12:35 | CPEKG ---
Heart Rate: 83 RR Interval: 723 P-R Interval: 156 QRSD Interval: 82 QT Interval: 376 QTC Interval: 442 P Palmer: 30 QRS Palmer: -24 T Wave Palmer: -23 EKG Severity - ABNORMAL ECG - EKG Impression: SINUS RHYTHM EKG Impression: PROBABLE LEFT ATRIAL ABNORMALITY EKG Impression: PROBABLE INFERIOR INFARCT, AGE INDETERMINATE Electronically Signed By: Inder Perry 17-Jun-2016 12:46:32
[2016-06-17] MEDS ORDERED: SODIUM CL NASAL 45 ML BTL EACHNARE PRN (13:10)
[2016-06-17] MEDS: ASPIRIN 81 MG CHEWABLE TAB PO SCH (13:20)
[2016-06-17] MEDS ORDERED: SODIUM CHLORIDE NASAL SPRAY EACHNARE PRN (13:25)
[2016-06-17] MEDS: FLUTICASONE NASAL 120 SPRAYS/16 GM MDI EACHNARE SCH (14:34)
--- NOTE | 2016-06-17 16:53 | SOAPPROG ---
SOAP Progress Note Assessment/Plan: Assessment: Influenza A: Without significant pneumonia seen on CT. Symptoms improving. On Tamiflu As well as Levaquin. ILD: Chronic, Organizing pneumonia vs IPF. He has been stable as outpatient for several years. Plan: Continue Tamiflu, Levaquin, oxygen for now. Possibly home tomorrow. I do feel he will need oxygen on discharge. His been on oxygen previously. With his underlying interstitial disease nighttime oxygen is probably necessary any way. Subjective: Feels better, however he continues to cough, somewhat short of breath. No lightheadedness. On oxygen. Objective: Vital Signs Temp Pulse Resp BP Pulse Ox 37.2 C 74 16 108/69 93 06/17/16 16:00 06/17/16 16:00 06/17/16 16:00 06/17/16 16:00 06/17/16 16:00 Laboratory Results 06/15/16 04:39 06/15/16 04:39 06/16/16 06/17/16 06/18/16 05:59 05:59 05:59 Intake Total 2808 2250 Output Total 800 1000 Balance 2007 1250 PT 13.2 SEC (12.0-15.0) 06/14/16 23:48 INR 1.01 (0.83-1.16) 06/14/16 23:48 Physical Exam - Physical Exam General Appearance: alert, no apparent distress, thin EENT: PERRL/EOMI, other ( Nasal cannula 2 L) Neck: normal inspection ( no JVD) Respiratory: decreased breath sounds, rales ( bibasilar rales approximately 1/[address]), No rhonchi (. Some central congestion with cough.) Cardiac/Chest: regular rate, rhythm Abdomen: normal bowel sounds, non-tender, soft Skin: normal color, warm/dry Lymphatic: no adenopathy Extremities: No pedal edema Neuro/Psych: no motor/sensory deficits, No cognition abnormalities ICD10 Worksheet Patient Problems: Problems Problem Status Onset Primary osteoarthritis of one hip Acute Generalized weakness Acute
[2016-06-18] MEDS: CEPACOL LOZENGE PO PRN (05:21)
[2016-06-18 07:21] VITALS: BP 106/66
[2016-06-18] MEDS: ENOXAPARIN 40 MG/0.4 ML SYR SC SCH (08:47)
[2016-06-18] MEDS: OSELTAMIVIR 6 MG/ML UDSYR PO SCH (08:48)
[2016-06-18] MEDS: ASPIRIN 81 MG CHEWABLE TAB PO SCH (08:50)
[2016-06-18] MEDS: ATORVASTATIN CALCIUM 10 MG TAB PO SCH (08:50)
[2016-06-18] MEDS: FLUTICASONE NASAL 120 SPRAYS/16 GM MDI EACHNARE SCH (08:52)
[2016-06-18 08:56] VITALS: TEMP 97.7; O2SAT 84
--- NOTE | 2016-06-18 09:41 | HOSPPROG ---
Hospitalist Progress Note Assessment/Plan: Patient is an 85-year-old man presented to the emergency room with weakness, shaking, and cough. *Influenza A tamiflu still on 2.5 liters of O2, but feeling better * sepsis resoled on Levaquin, blood cultures no growth *elevated trops/likely demand ischemia trops have trended up/ no chest pain echo shows ef of 70-75%, diastolic dysfunction, no wall abnormalities * interstitial lung disease chest x-ray notes this in addition CT scan shows no PE, evidence of diffuse interstitial lung disease and bronchiectasis * acute kidney injury likely due in the setting of dehydration and being ill * macrocytosis * tremulousness non further *acute encephalopathy resolved *elevated TSH will have this repeated in 6 weeks with his PCP to see if he needs treatment *Plan: dc home with oxygen Subjective: Ruy is feeling much better today/ ready to go home. Objective: Vital Signs Temp Pulse Resp BP Pulse Ox 36.5 C 70 16 106/66 84 L 06/18/16 08:55 06/18/16 07:19 06/18/16 07:19 06/18/16 07:19 06/18/16 08:55 Laboratory Results 06/15/16 04:39 06/15/16 04:39 06/17/16 06/18/16 06/19/16 05:59 05:59 05:59 Intake Total 2250 Output Total 1000 550 Balance 1250 -550 PT 13.2 SEC (12.0-15.0) 06/14/16 23:48 INR 1.01 (0.83-1.16) 06/14/16 23:48 - Physical Exam Constitutional: no apparent distress, appears nourished Eyes: PERRL Ears, Nose, Mouth, Throat: hearing normal Respiratory: no respiratory distress Skin: warm Musculoskeletal: full muscle strength Neurologic: AAOx3 Psychiatric: interacting appropriately, not anxious ICD10 Worksheet Patient Problems: Problems Problem Status Onset Generalized weakness Acute Primary osteoarthritis of one hip Acute
--- NOTE | 2016-06-18 10:04 | PDIAF ---
- Diagnosis Diagnosis: Influenza, ILD Code Status: Do Not Resuscitate - Medication Management Discharge Medications: Medications to Continue on Transfer Atorvastatin Calcium [Lipitor 10 mg (*)] 10 mg PO DAILY 06/15/16 [Last Taken ] Diclofenac Sodium [Voltaren 75 MG (*)] 75 mg PO BID PRN 06/15/16 [Last Taken ] Diclofenac Sodium [Voltaren Gel (*)] 1 nyasia TP EVERY OTHER DAY 06/15/16 [Last Taken 06/14/16] Aspirin [Aspirin 81mg (*)] 81 mg PO DAILY #0 tab.chew 06/18/16 [Last Taken Unknown] Oseltamivir Phosphate [Tamiflu Oral Suspension] 30 mg PO BIDMEAL #15 ml [Last Taken Unknown] levOFLOXACIN [levAQUIN (*)] 750 mg PO Q48H #2 tab 06/18/16 [Last Taken Unknown] Discharge Medications: Refer to the Discharge Home Medication list for PRN reason. - Orders Services needed: Home Care, Registered Nurse, Physical Therapy, Occupational Therapy Home Care Face to Face: I certify that this patient was under my care and that I had the required [id number] encounter meeting the encounter requirements on the discharge day. My findings support the fact that the patient is homebound as defined in CMS Chapter 7 Medicare Benefits Manual 30.1.1, The condition of the patient is such that there exists a normal inability to leave home and consequently, leaving home would require a considerable and taxing effort. Diet Recommendation: no restrictions on diet Diet Texture: Regular Texture Diet Activity/Weight Bearing Restrictions: Levaquin can affect achilles tendon/ if you have pain or tenderness, stop taking the medication and follow up with your doctor. No high activity while on this medication. Additional: repeat TSH in 6 weeks. Follow up with Dr Matthews in 2 weeks. - Follow Up Care Current Providers and Referrals: Gema Etienne MD [Primary Care Provider] - As per Instructions Javier Redmond MD [Medical Doctor] - Benedict Matthews MD [Medical Doctor] -
--- NOTE | 2016-06-18 10:54 | GDS ---
[f rep st] DISCHARGE SUMMARY DISCHARGE DIAGNOSES: 1. Influenza A. 2. Sepsis. 3. Elevated troponin/demand ischemia. 4. Interstitial lung disease. 5. Acute kidney injury. 6. Macrocytosis. 7. Tremulousness. 8. Acute encephalopathy. 9. Increased TSH. BRIEF HISTORY: The patient is an 85-year-old male with past medical history of interstitial lung di sease who presented to the emergency room with general malaise, fatigue, loss of appetite, sore thro at, and shaking chills. He was extremely tremulous on admission, having difficulty telling his stor y, and was in mild distress. He was admitted, and it was noted that he had influenza A. he was giv en treatment for this. 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 He also had evidence of underly ing chronic interstitial lung disease. No evidence for pneumonia or acute alveolitis. He has cylin drical bronchiectasis but no evidence of mucous plugging. He was seen and evaluated by Pulmonology who agreed with the current treatment. In addition, he was seen and evaluated by Dr. Javier dougherty Cardiology because of increase in his troponins. He improved throughout his stay. He will be dis charged home. He will need oxygen around the clock until he follows up with Dr. Matthews in the outpat ient setting. HOSPITAL COURSE: 1. Influenza A: He is on the Tamiflu. He will get 3 more doses. He will need oxygen around the c lock. He was initially on 5 L, now on 2.5 L. 2. Sepsis: Resolved. Blood culture showed no growth. 3. Elevated troponins: Likely demand ischemia. He had an echo performed which showed an EF of 70% to 75% with diastolic dysfunction. He had no wall abnormalities. 4. Interstitial lung disease: Further follow up with Dr. Matthews. 5. Acute kidney injury: Stable. 6. Macrocytosis: Stable. 7. Tremulousness: Resolved. 8. Acute encephalopathy: Resolved. 9. Elevated TSH: He needs to get a repeat TSH in 6 weeks with his primary care provider. PENDING LABORATORIES AND TESTS: None. CONDITION AT DISCHARGE: Stable. Blood pressure is 106/66, heart rate is 70, respiratory rate 16, O 2 saturation on 2.5 L 93%, temperature is 36.8 Celsius. MEDICATIONS AT DISCHARGE: Please see the EMR. DISCHARGE INSTRUCTIONS: 1. To take it easy while on the Levaquin, it can cause tendon rupture. 2. Use oxygen around the clock until he gets further evaluation by Dr. Matthews. 3. Follow up with Dr. Redmond with Cardiology. 4. Take aspirin daily. 5. Two more doses of Tamiflu. 6. Repeat TSH in [address] Etienne. Greater than 30 minutes discharging and coordinating care. Copy requested to: Dr. Matthews /[id number]/MODL
--- NOTE | 2016-06-18 11:44 | SOAPPROG ---
SOAP Progress Note Assessment/Plan: Assessment: Influenza A: Without significant pneumonia seen on CT. Symptoms improving. On Tamiflu as well as Levaquin for possible bacterial bronchitis. ILD: Chronic, with CT scan showing some honeycombing and traction bronchiectasis. There is some increased fibrosis and increased honeycombing since 2010. He has been stable clinically for a number of years. Hypoxemia. Secondary to interstitial lung disease with an acute component secondary to influenza A. He is to go home on oxygen. Chronic renal insufficiency Plan: Okay for discharge today to complete antibiotics. He will need oxygen on discharge. He will likely need this ongoing at night and may need some oxygen during the day with heavier exertional activities?. He is to follow up with me in 2-4 weeks. Spirometry will be done at that time. Subjective: Feels better, less short of breath. Still with some cough, little bit of mucus. Says he is 8 on a scale of 10. Objective: Vital Signs Temp Pulse Resp BP Pulse Ox 36.5 C 72 18 106/66 84 L 06/18/16 08:55 06/18/16 08:55 06/18/16 08:55 06/18/16 07:19 06/18/16 08:55 Laboratory Results 06/15/16 04:39 06/15/16 04:39 06/17/16 06/18/16 06/19/16 05:59 05:59 05:59 Intake Total 2250 Output Total 1000 550 Balance 1250 -550 PT 13.2 SEC (12.0-15.0) 06/14/16 23:48 INR 1.01 (0.83-1.16) 06/14/16 23:48 Physical Exam - Physical Exam General Appearance: alert, no apparent distress, thin EENT: other (Nasal cannula at 2 L. 84% on room air.) Neck: normal inspection (No JVD) Respiratory: decreased breath sounds, rales (Rales bilaterally, over half the way up), No rhonchi, No wheezing Cardiac/Chest: regular rate, rhythm, systolic murmur Abdomen: normal bowel sounds, non-tender, soft Skin: normal color, warm/dry Extremities: No pedal edema Neuro/Psych: no motor/sensory deficits, No cognition abnormalities ICD10 Worksheet Patient Problems: Problems Problem Status Onset Generalized weakness Acute Primary osteoarthritis of one hip Acute
[2016-06-18 12:08] VITALS: PULSE 72; RESP 18
== END 2016-06-18 14:27 | disposition home health service (06) | DRG 871 ==
LOC: EDUNIT# → F3E 06-15 03:16
PROVIDERS: ADMIT Internal Medicine; ATTEND Internal Medicine
DX: A41.89 Other specified sepsis (principal); J10.1 Influenza due to other identified influenza virus with other respiratory manifestations; G93.40 Encephalopathy, unspecified; N17.9 Acute kidney failure, unspecified; J84.9 Interstitial pulmonary disease, unspecified; I25.10 Atherosclerotic heart disease of native coronary artery without angina pectoris; I65.23 Occlusion and stenosis of bilateral carotid arteries; D75.89 Other specified diseases of blood and blood-forming organs; E78.5 Hyperlipidemia, unspecified; Z66 Do not resuscitate
CPT/HCPCS: 96365; 97116-GP; 97161-GP; 97165-GO; 97530-GO; 97535-GO; G8978-GP-CJ; G8979-GP-CI; G8987-GO-CK; G8988-GO-CI; G8989-GO-CI; J0456; J0696; J1650; J1956; J2060; Q9967